=== PATIENT | female | born 1945 | race Caucasian/White ===

== ENCOUNTER 2018-08-29 09:41 | Emergency (ER) | payer MEDICARE, OTHER ==
[~2018-08-29] VITALS: Ht 160 cm; Wt 63.5 kg
[2018-08-29] MEDS ORDERED: XARELTO20 MG PO (09:49)
[2018-08-29] MEDS ORDERED: SYNTHROID75 MCG PO (09:50)
[2018-08-29] MEDS ORDERED: FLECAINIDE ACET50 M1 PO (09:50)
[2018-08-29] MEDS ORDERED: CARTIA XT240 M1 PO (09:50)
[2018-08-29] MEDS ORDERED: FOLBIC RF TABL1 EACH PO (09:51)
[2018-08-29] MEDS ORDERED: TRAZODONE HCL50 MG (09:51)
[2018-08-29] MEDS ORDERED: CALCIUM CITRAT1 EAC7 PO (09:51)
[2018-08-29 11:10] VITALS: BP 195/94
== END 2018-08-29 11:11 | disposition home or self-care (01) ==
LOC: M.ERS 09:41
DX: S01.01XA Laceration without foreign body of scalp, initial encounter (principal); I48.91 Unspecified atrial fibrillation; I10 Essential (primary) hypertension; E89.0 Postprocedural hypothyroidism; Z90.710 Acquired absence of both cervix and uterus; W22.8XXA Striking against or struck by other objects, initial encounter; Y93.89 Activity, other specified; Y92.89 Other specified places as the place of occurrence of the external cause; Y99.8 Other external cause status